=== PATIENT | female | born 1950 | race Caucasian/White ===

== ENCOUNTER 2016-10-02 23:48 | Inpatient (IN) | payer MEDICARE, OTHER ==
--- NOTE | ~2016-10-02 | CO ---
Unit #: [id number] #: [id number] Patient: BENJI ELIZABETH [id number] [facility] [address] [facility]. [place], [place] [address] [id number] I MR#: [id number] NAME: BENJI ELIZABETH ROOM: 320 Age: 66 Sex: F Admission Date: 10/03/2016 : 1950 Attending Physician: Rosa Montalvo M.D. Primary Care Physician: Fiona Nelson Aprn Consultation Date: 10/05/2016 CONSULTATION REPORT REASON FOR ASSESSMENT Followup. DISCUSSION Ms. Brunson is a 66-year-old female, who was admitted after an overdose, history of depression and recent suicide attempt. The patient was stepped down from ICU to unit on 3A. The patient was seen in room 320 bed 1 at [facility]. The patient reports that she is feeling better and wanted to go home. The patient although still having significant depression, but denied any suicidal plan. The patient attempted suicide after she was in hospital for 11 days. REVIEW OF SYSTEMS Complete review of systems is unremarkable. MENTAL STATUS EXAMINATION General appearance; the patient dressed casually. Attention span and concentration, fair. Speech, regular rate. Oriented in time, place, and person. Mood and affect were sad, dysphoric, anxious. Thought process was coherent. Thought content, the patient denied any thoughts of harming self or others, but recent serious suicide attempt, history of depression. Recent and remote memory, fair. Language, able to name object, repeat phrases. Fund of knowledge, fair. Insight and judgment, fair to slightly impaired. DIAGNOSES Psychiatric: Major depressive disorder, recurrent, severe, F33.2. Secondary diagnosis: Deferred. ASSESSMENT/PLAN 1. Supportive psychotherapy and psychoeducation provided to the patient. 2. Educated about benefits and side effects of medication and course and prognosis of illness. 3. Advised the patient to be transferred to inpatient psychiatric facility for psychiatric stabilization and possibly consider ECT treatment as the patient failed with medication. Please feel free to call if any questions, telephone #[phone]. Dictated by... Rl Echols M.D. Unit #: [id number] #: [id number] Patient: BENJI ELIZABETH FAYEC/modl TD: 10/07/2016 07:11 JOB #: [id number] CONSULTATION REPORT X Rl Echols MD CONSULTATION REPORT
--- NOTE | ~2016-10-02 | ST ---
Unit #: [id number] #: [id number] Patient: BENJI ELIZABETH [id number] [facility]. [address] [address] [id number] I MR#: [id number] NAME: BENJI ELIZABETH : 1950 SEX: F STUDY DATE/TIME: 10/04/2016 UNIT: [facility] ROOM: [facility] STUDY DESCRIPTION: Stress Test Attending Physician: Rosa Montalvo M.D. Primary Care Physician: Fiona Nelson Aprn CARDIOLOGY REPORT REASON FOR EXAM Bradycardia and drug overdose. DESCRIPTION Baseline EKG shows sinus rhythm, rate 66 beats per minute. 0.4 mg of Lexiscan was injected per protocol followed by Cardiolite. The patient experienced headache and shortness of breath during the infusion. She denied any complaints of chest pain. Resting blood pressure was 175/99, maximum blood pressure was 175/101, ending blood pressure 174/94. There were no ST or T wave changes suggestive of ischemia during the infusion. There was no ectopy noted during the infusion. The test was stopped secondary to protocol completion. CONCLUSION 1. Negative EKG portion of Lexiscan Cardiolite. 2. No ST or T wave changes suggestive of ischemia. 3. The patient experienced shortness of breath and headache during the infusion. Denied any complaints of chest pain. Her headache and shortness of breath resolved in the recovery period. 4. There were no arrhythmias noted. 5. Please correlate with nuclear imaging. Dictated by... Kasia DuncanRLaurie for Brianne Tamayo/fernie TD: 10/04/2016 12:05 JOB #: [id number] Unit #: [id number] #: [id number] Patient: BENJI ELIZABETH CARDIOLOGY REPORT X Karen Hunter APRN CARDIOLOGY REPORT
--- NOTE | ~2016-10-02 | EKG ---
PATIENT: BENJI ELIZABETH UNIT #: [id number] Ventricular Rate: 63 BPM Atrial Rate: 63 BPM P-R Interval: 136 ms QRS Duration: 94 ms Q-T Interval: 426 ms QTC Calculation(Bezet): 435 ms P [place]: 75 degrees Calculated R [place]: 64 degrees Calculated T Rena [place]: 64 degrees Diagnosis Line: Normal sinus rhythm Diagnosis Line: Normal ECG Diagnosis Line: When compared with ECG of 03-OCT-2016 00:51, Diagnosis Line: Premature atrial complexes are no longer Present Diagnosis Line: Confirmed by DEVANG JASSO MD ([id number]) on Diagnosis Line: 10/04/2016 12:05:23 PM INTERPRETING MD: JUSTIN
--- NOTE | ~2016-10-02 | CO ---
Unit #: [id number] #: [id number] Patient: BENJI ELIZABETH [id number] [facility]. [place] [address] [facility]. [place], [place] [address] [id number] I MR#: [id number] NAME: BENJI ELIZABETH ROOM: 320 Age: 66 Sex: F Admission Date: 10/03/2016 : 1950 Attending Physician: Rosa Montalvo M.D. Primary Care Physician: Fiona Nelson Aprn Consultation Date: 10/03/2016 CONSULTATION REPORT REASON FOR CONSULTATION Medical overdose with Metoprolol. HISTORY OF PRESENT ILLNESS This is a 66-year-old white female with known history of major depressive disorder and polysubstance abuse, previous alcohol abuse and history of drug overdose back in 2012 that caused acute kidney injury, rhabdomyolysis and elevated LFTs. She also has hypertension and COPD. She came to the emergency room by EMS after her realized that she had taken some of her prescription medications. According to information, she took 40 tablets of 25 mg of Metoprolol and 25 tablets of 5 mg of Abilify. The patient had just got the prescription filled on 09/27/2016. The patient does not have any significant cardiac history reported. She says she had a stress test years ago that she was told was normal. The patient, currently on interview and exam, is answering questions appropriately. She said that she wanted to , she was not concerned for her family, they would be okay after they went through the grieving process. She also reports she has been going to a psychiatrist as an outpatient and knew that her depression was worsening. The patient denies any chest pain, pain in her neck, bilateral jaws, shoulders, arms or elbows. She denies any shortness of breath. She denies any dizziness, pre-syncope or syncope. She denies any recent cough, fever or chills. The poison center was called to obtain advice on antidotes or reversals of the drug overdose. She was given a glucagon bolus and placed on a glucagon drip at 3 mg an hour. Prior to that she had activated charcoal 30 grams p.o., and she was given a liter of normal saline. The patient is on suicide watch. She has a sitter. Cardiology has been asked to assist with evaluation and management. PAST MEDICAL HISTORY 1. Hypertension. 2. COPD. 3. History of polysubstance abuse in the past. 4. History of nicotine abuse. 5. History of drug overdose in 2013, which caused acute kidney injury, rhabdomyolysis and elevated LFTs. 6. History of alcohol abuse. 7. Major depressive disorder. PAST SURGICAL HISTORY Unit #: [id number] #: [id number] Patient: BENJI ELIZABETH Removal of a ganglion cyst and also cyst on her left fallopian tube. HOME MEDICATIONS 1. Abilify 5 mg p.o. daily. 2. Metoprolol 25 mg p.o. b.i.d. ALLERGIES codeine. SOCIAL HISTORY The patient lives with her spouse. She has been battling with major depressive disorder for a few years. She smokes 1/2 to a pack of cigarettes a day. Has been smoking most of her adult life. Looking back on previous dictations, she had a history of IV drug use but none in the last couple/three years. She used to drink heavily but reports has not been drinking in some time. FAMILY HISTORY No known coronary artery disease in the immediate family members reported. REVIEW OF SYSTEMS See details in the HPI. PHYSICAL EXAMINATION GENERAL: On exam, the patient is awake, alert, answers most questions appropriately, has a flat affect. VITAL SIGNS: Blood pressure is 94/54; later 103/62, heart rate 56, respirations 16, temperature 97.7, O2 sats 98% on room air. NECK: Trachea midline. No thyromegaly or lymphadenopathy. Normal carotid upstrokes. No jugular venous distention. HEART: S1, S2, regular rate and rhythm. No clicks, murmurs, or rubs. LUNGS: Slightly diminished; otherwise, clear. ABDOMEN: Soft, nontender. Positive bowel sounds present. No hepatosplenomegaly. EXTREMITIES: Pedal pulses are palpable. No pedal edema. DIAGNOSTIC STUDIES LABORATORY DIAGNOSTIC DATA: Glucose is 94, BUN 24, creatinine 1.1, eGFR 53, sodium 139, potassium 3.3, chloride 116, CO2 20, calcium 8.6. Initial cardiac enzymes - CK-MB is 6.1 with troponin less than 0.05. WBC is 13.1, hemoglobin 11.7, hematocrit 35.3, platelets 186. Urine tox screen is negative. Urinalysis shows 2+ leukocyte esterase, positive nitrites, 0-2 urobilinogen, WBCs 10-25, 1+ bacteria. Total protein was 7, albumin 4, bili total 0.4, AST 27, ALT 19, alkaline phosphatase 114. Acetaminophen level less than 10, salicylate level less than 4, alcohol level less than 5. IMAGING: Chest x-ray - Nothing acute. CARDIOVASCULAR: EKG shows sinus bradycardia with frequent premature atrial complexes, ventricular rate 54 beats per minute; otherwise, unremarkable. IMPRESSION 1. Intentional suicide attempt, medical overdose with 40 tablets of 25 mg of Metoprolol and 25 tablets of 5 mg of Abilify. 2. History of hypertension. 3. Hypokalemia. Unit #: [id number] #: [id number] Patient: BENJI ELIZABETH 4. COPD. 5. Nicotine abuse. 6. History of alcohol abuse in the past. 7. History of IV drug abuse in the past back in 2012. PLAN 1. Cardiology consulted to assist with evaluation and management. The patient is currently on a glucagon drip. Her heart rate is in the 50s and 60s. It is not normal sinus rhythm. It has been several hours since her charcoal and initiation of the glucagon. If the blood pressure and heart rate remain stable, we will stop infusion of the glucagon and monitor closely. Continue to monitor the patient in ICU post glucagon drip. 2. The patient's potassium is low. Will supplement with 40 mEq p.o. now. 3. Obtain a two-D echo to evaluate LV function and valves. 4. Obtain TSH and evaluate. 5. Dr. Echols, psychiatrist, has been consulted to assist with management of her suicidal ideations. 6. On exam, there does not appear to be any signs or symptoms of acute CHF, unstable angina. Will need to have an ischemic heart disease workup at some time. 7. Will evaluate what the patient needs for blood pressure management if needed before discharge. 8. Encouraged the patient to completely quit smoking and any polysubstance abuse. 9. Dr. Echols has consult pending. Thank you very much for allowing us to assist in her care. Dictated by... Duy Richard M.D. CEC/jin TD: 10/05/2016 07:35 JOB #: [id number] CONSULTATION REPORT X Marion Christiansen APRN CONSULTATION REPORT
--- NOTE | ~2016-10-02 | DS ---
Unit #: [id number] #: [id number] Patient: BENJI ELIZABETH [id number] [address] [place], [place] [address] [id number] I MR#: [id number] NAME: BENJI ELIZABETH ROOM: 320 Age: 66 Sex: F Admission Date: 10/03/2016 : 1950 Discharge Date: 10/05/2016 Attending Physician: Rosa Montalvo M.D. Primary Care Physician: Fiona Nelson, Shayne DISCHARGE SUMMARY REASON FOR ADMISSION Suicidal overdose. HISTORY OF PRESENT ILLNESS/HOSPITAL COURSE The patient is a 66-year-old female with a past medical history of polysubstance abuse, hypertension, COPD, brought to the emergency department secondary to suicidal overdose. She tried to take 40 pills of metoprolol and 25 pills of Abilify secondary to suicide attempt. She received charcoal by mouth as well as NG-tube was placed. She was quite adamant on the day of admission that she was trying to kill herself. The patient's called EMS. The patient was brought to the hospital for further evaluation. Please see H and P for complete details. Consultation was placed to Dr. Ramachandran of cardiology services secondary to beta manjula ingestion as well as Dr. Villafuerte of pulmonary services for ICU management. The patient underwent Lexiscan Cardiolite stress test to which was negative for acute ischemia. The patient was monitored closely. Heart rate did remain stable at time of discharge. No further beta blockers will be administered. In regards to her overall respiratory status, Dr. Villafuerte and associates followed. Patient otherwise stable and was given breathing treatments including Symbicort, Duo-Neb, aerosols. Initial urinalysis was positive. Final urine culture result did reveal Staphylococcus with sensitivity to Levaquin to which she will be given a prescription at the time of discharge. In regards to her history of suicidal attempt, generalized anxiety disorder, we placed consultation to Dr. Echols who recommended transfer and/or disposition to inpatient psychiatric rehab for ongoing care. Therefore, [facility] this afternoon once bed is available. FINAL DISCHARGE DIAGNOSES 1. Suicidal overdose/attempt. 2. Polypharmacy. 3. Polysubstance abuse in the past. 4. Hypertension. Unit #: [id number] #: [id number] Patient: BENJI ELIZABETH 5. Chronic obstructive pulmonary disease. 6. Staph coag negative urine/urinary tract infection. 7. Generalized anxiety disorder. FINAL DISCHARGE MEDICATIONS 1. Symbicort 160/4.5, two puffs b.i.d. 2. Albuterol, one puff q.6 p.r.n. 3. Levaquin 500 mg p.o. daily x7 days. 4. Norvasc 5 mg p.o. daily. DISCHARGE CONDITION Stable. DISCHARGE DISPOSITION To inpatient psychiatric rehab once bed available. Dictated by... Brianne Zavala/fernie TD: 10/07/2016 08:28 JOB #: [id number] DISCHARGE SUMMARY X Rosa Montalvo MD X DISCHARGE SUMMARY
--- NOTE | ~2016-10-02 | EKG ---
PATIENT: BENJI ELIZABETH UNIT #: [id number] Ventricular Rate: 54 BPM Atrial Rate: 54 BPM P-R Interval: 158 ms QRS Duration: 94 ms Q-T Interval: 484 ms QTC Calculation(Bezet): 458 ms P [place]: 78 degrees Calculated R [place]: 74 degrees Calculated T [place]: 72 degrees Diagnosis Line: Sinus bradycardia with Premature atrial complexes Diagnosis Line: Otherwise normal ECG Diagnosis Line: Diagnosis Line: Confirmed by JOAO ESPARZA MD ([id number]) on 10/03/2016 Diagnosis Line: 7:08:31 AM INTERPRETING MD: ISAIAS MAIER
--- NOTE | ~2016-10-02 | TH ---
Unit #: [id number] #: [id number] Patient: BENJI ELIZABETH [id number] [address] [address] [id number] I MR#: [id number] NAME: BENJI ELIZABETH : 1950 SEX: F STUDY DATE/TIME: 10/04/2016 UNIT: [facility] ROOM: [facility] STUDY DESCRIPTION: LEXISCAN CARDIOLITE STRESS WILMAN Attending Physician: Rosa Montalvo M.D. Primary Care Physician: Fiona Nelson Aprn CARDIOLOGY REPORT EXAM Lexiscan Cardiolite stress test, nuclear portion PROCEDURE Using technetium-99m labeled Cardiolite rest and stress SPECT images were obtained. Multiple SPECT images were obtained in various views including horizontal and vertical long axis, and short axis views of the left ventricle. Images were obtained by gated SPECT method. Patient was administered 10.61 mCi of Cardiolite at rest. The patient was administered 31.2 mCi of Cardiolite after Lexiscan infusion was completed. On the stress images, there is normal perfusion noted. The rest images show normal perfusion. Comparing rest and stress images, there is no stress-induced ischemia noted. The left ventricular ejection fraction is calculated to be 77%. There is focal wall motion abnormality seen. CONCLUSION 1. No stress-induced ischemia noted. 2. Left ventricular ejection fraction is calculated to be 77%. 3. No focal wall motion abnormality seen. 4. Normal Lexiscan Cardiolite stress test. Dictated by... Brianne Tamayo TD: 10/04/2016 15:37 JOB #: [id number] CARDIOLOGY REPORT X Jess Ramachandran MD CARDIOLOGY REPORT
--- NOTE | ~2016-10-02 | CO ---
Unit #: [id number] #: [id number] Patient: NANNETTE ELIZABETH [id number] [facility] [address] [facility]. [place], [place] [address] [id number] I MR#: [id number] NAME: NANNETTE ELIZABETH ROOM: [facility] Age: 66 Sex: F Admission Date: 10/03/2016 : 1950 Attending Physician: Destiny Ernst M.D. Primary Care Physician: Fiona Nelson Aprn Consultation Date: 10/03/2016 CONSULTATION REPORT REASON FOR CONSULTATION Depression, suicide attempt. HISTORY OF PRESENT ILLNESS Ms. Nannette Lim is a 66-year-old white female, seen in ICU-2, bed 5 at [facility]. The patient was admitted last night after taking all her medications. The patient reported that she took overdose as she did not want to live. The patient took 40 pills of metoprolol and 25 pills of Abilify in a suicide attempt. The patient reported that she lives with her in [place]. The patient reported that her was recently released after he was incarcerated for DUI for 18 months in August. The patient reports that she has 2 children; one lives out of state; the other one lives here in town. The patient reported that she has a supportive family. The patient reported that her is very supportive. Denied any history of abuse or any history of substance abuse. The patient reports that she has been suffering from depression all her life. Reported currently focused on at age 20. The patient denied any psychotic symptom; currently feeling sad, depressed, anxious. PAST PSYCHIATRIC HISTORY Remarkable for history of recent admission at [facility] for inpatient. The patient reported that she was there for 11 days and discharged recently and followed up in outpatient clinic. MEDICAL HISTORY The patient has a history of hypertension. MEDICATION HISTORY The patient was on medication for hypertension, Abilify, Klonopin, and Paxil. FAMILY HISTORY AND SOCIAL HISTORY The patient lives with her . Denied any history of abuse or any use of drug or alcohol. REVIEW OF SYSTEMS Complete review of systems is unremarkable. MENTAL STATUS EXAMINATION General appearance, the patient dressed casually, lying comfortably in bed in ICU, has a sitter. Attention span and concentration, fair. Speech, regular rate and coherent. Oriented in time, place, and person. Mood and affect were sad, dysphoric, anxious. Thought process, coherent and goal Unit #: [id number] #: [id number] Patient: NANNETTE ELIZABETH directed. Thought content, the patient denied any thoughts of harming self or others, but somewhat guarded. Denied any auditory or visual hallucination. Recent and remote memory, fair. Language, able to name object and repeat phrases. Fund of knowledge, fair. Insight and judgment, fair to slightly impaired. DIAGNOSES Psychiatric: Major depressive disorder, recurrent, severe, F33.3, without psychotic feature. Secondary Diagnosis: Deferred. Medical Diagnosis: Please refer to H and P. Stressors: Psychosocial stressors. ASSESSMENT/PLAN 1. Supportive psychotherapy and psychoeducation provided to the patient. 2. Educated about benefits and side effects of medication, and course and prognosis of illness. 3. Advised to hold psychotropic medications at this time. Plan to consider at a later date. We will closely monitor the patient's mood and behavior. Plan to consider transferring the patient from here to inpatient psych facility once the patient is medically cleared. Please feel free to call if any question, telephone #[phone]. We will continue with the hold and the sitter at this time for the patient's safety as the patient was still reporting suicidal ideation all day long to the sitter. Dictated by... Brianne Andrea/sara TD: 10/04/2016 04:41 JOB #: [id number] CONSULTATION REPORT X Rl Echols MD X CONSULTATION REPORT
--- NOTE | ~2016-10-02 | CO ---
Unit #: [id number] #: [id number] Patient: BENJI ELIZABETH [id number] [place] [address] [facility]. [place], [place] [address] [id number] I MR#: [id number] NAME: BENJI ELIZABETH ROOM: [facility] Age: 66 Sex: F Admission Date: 10/03/2016 : 1950 Attending Physician: Destiny Ernst M.D. Primary Care Physician: Elle Shea Aprn CONSULTATION REPORT JOB NOTE: CC: ELLE SHEA APRN REASON FOR CONSULTATION ICU monitoring for overdose. HISTORY OF PRESENT ILLNESS This 66-year-old female, who has depression and apparently had an intentional Lopressor and Abilify overdose. She has been in the intensive care unit on glucagon and stable. She does smoke and has a history of COPD. She denies shortness of breath or wheezing. She does have chronic sputum production, but no change in her baseline pulmonary symptoms. She denies chest pain or other acute issues. According to the EHR and the nursing staff, she does admit to trying to kill herself and psychiatry has been consulted. PAST MEDICAL HISTORY Hypertension, COPD, polysubstance abuse. MEDICATIONS At home, Abilify, metoprolol. ALLERGIES Codeine. SOCIAL HISTORY She smokes a pack of cigarettes a day. There was some mention of IV drug abuse and alcohol in the EHR. FAMILY HISTORY No definite familial lung disease. REVIEW OF SYSTEMS She really denies any problems whatsoever. Denies chest pain, palpitations, abdominal pain, melena, hematemesis, trouble swallowing, hematuria, dysuria, leg pain, swelling, headache, dizziness, fever, etc. Further review of systems negative. PHYSICAL EXAMINATION GENERAL: Reveals a patient, who is comfortable lying flat in bed, getting an echocardiogram. VITAL SIGNS: She is afebrile, pulse 58, respiratory rate is 18, blood pressure is 124/65, 5 feet 6 inches, 165 pounds. HEENT: Pupils are equal, round, and reactive to light. Sclerae anicteric. Head atraumatic. Unit #: [id number] #: [id number] Patient: BENJI ELIZABETH NECK: Supple. No supraclavicular or cervical adenopathy appreciated. Mucous membranes moist. She has natural teeth. CHEST: No wheeze, stridor, or consolidation. CARDIAC: Reveals regular rate and rhythm. Mildly bradycardic. No murmur. ABDOMEN: Soft and nontender. No hepatomegaly or rebound. EXTREMITIES: Reveal SCD stockings in place. No definite cyanosis or clubbing. SKIN: Warm and dry without rash or diaphoresis. NEUROLOGIC: Grossly intact. No focal, motor or sensory deficits. DIAGNOSTIC STUDIES LABORATORY RESULTS: BUN 24, creatinine is 1.1, potassium is 3.3, and alkaline phosphatase mildly elevated at 114. White blood cell count 13.1, hemoglobin 11.5, platelet count 186. Tox screen is negative. Urinalysis; 2+ leukocyte esterase, 10 to 25 white blood cells. Urine is pending. IMAGING STUDIES: No radiographs have been performed. IMPRESSION 1. Lopressor and Abilify overdose with subsequent bradycardia, stable. 2. Urinary tract infection. 3. Chronic obstructive pulmonary disease and chronic bronchitis, stable. 4. Active tobacco use. 5. Hypokalemia, treated by Cardiology. PLAN Continue to monitor in ICU, cardiology is managing glucagon/need for dopamine. Psychiatry has been consulted. I will start antibiotics for urinary tract infection. Follow up cultures, adjust as needed. Certainly, no smoking is of great benefit and this has been discussed with the patient. She is on Symbicort and has a nebulizer and Ventolin inhaler at home. I have asked her to continue her Symbicort b.i.d. and as needed albuterol. Thank you very much for allowing me to participate in the care of Ms. Elizabeth. Dictated by... Abelardo Villafuerte M.D. NARGIS/sara TD: 10/04/2016 02:09 JOB #: [id number] CONSULTATION REPORT X Abelardo Villafuerte MD X CONSULTATION REPORT
--- NOTE | ~2016-10-02 | HP ---
Unit #: [id number] #: [id number] Patient: BENJI ELIZABETH [id number] [address] [place], [place] [address] [id number] MR#: [id number] NAME: BENJI ELIZABETH ROOM: [facility] Age: 66 Sex: F Admission Date: 10/03/2016 : 1950 Attending Physician: Alice Hurd M.D. Primary Care Physician: Fiona Nelson Aprn HISTORY AND PHYSICAL CHIEF COMPLAINT Suicidal overdose. HISTORY OF PRESENT ILLNESS The patient is a 66-year-old female with a past medical history of polysubstance abuse, hypertension and COPD, brought to the emergency room for suicidal overdose. The patient took 40 pills of metoprolol and 25 pills of Abilify for suicidal attempt. The patient is minimally responsive and is unable to provide the history. The history is obtained by reviewing the records and speaking to the ER physician and the RN at the bedside. The patient stated the patient was trying to kill herself. The patient has a history of substance abuse in the past and was admitted a few years ago for similar problems. The patient received charcoal by mouth and removed the NG-tube. The patient is unable to provide any history and the patient was found unresponsive and the patient's called EMS for the above reasons. PAST MEDICAL HISTORY 1. History of hypertension. 2. Polysubstance abuse. PAST SURGICAL HISTORY History of ganglion cyst on left fallopian tube. HOME MEDICATIONS Abilify and metoprolol prescribed on 09/27/2016. ALLERGIES Codeine. SOCIAL HISTORY She smokes one third of cigarettes. She also has IV drug abuse as well as the opiates and alcohol. FAMILY HISTORY Unobtainable. REVIEW OF SYSTEMS Unobtainable. PHYSICAL EXAMINATION GENERAL: The patient is lying on the bed, not in acute distress. VITALS: Temperature 97.7, pulse 55, respiratory rate 16, blood pressure 105/75, sat'ing 94% at room air. Unit #: [id number] #: [id number] Patient: BENJI ELIZABETH HEAD: Atraumatic, normocephalic. EENT: Pupils equal, round, reacting to light and accommodation. NECK: Supple. Trachea midline. LUNGS: Decreased air entry at the bases. HEART: Regular rate and rhythm. ABDOMEN: Soft. Positive bowel sounds. EXTREMITIES: She has multiple tract zavaleta for the suicidal attempt/IV track zavaleta. NEUROLOGICAL: The patient minimally responds to verbal commands and opens the eyes and goes back to sleep. She does not follow any commands. SKIN: Warm and dry. DIAGNOSTIC STUDIES LABORATORY DATA: WBC is 9.6, hemoglobin 12.1, hematocrit 36.8, platelets 209. Troponin is less than 0.05. BNP is pending. CARDIOVASCULAR: EKG shows sinus bradycardia with PACs, rate of 54. NE interval of 158 and QTC of 458. ASSESSMENT AND PLAN 1. Altered mental status secondary to (1) /unresponsiveness. 2. Metoprolol and Abilify overdose. 3. Bradycardia. 4. Hypertension. Plan is to admit patient to the ICU. The patient has received a bolus of glucagon and is on the drip. Continue with the glucagon drip. The patient will have a psych evaluation. Sitter one-to-one and suicide precautions. Repeat the labs again in the morning. Critical care done with Dr. Villafuerte who has seen in the past. Nebs q.4 p.r.n. Continue with IV fluids normal saline at 100 mL/hour. Further recommendations to follow as more lab results are available. Dictated by Brianne Bernal TD: 10/03/2016 06:03 JOB #: [id number] HISTORY AND PHYSICAL X X HISTORY AND PHYSICAL
[~2016-10-02 23:48] MED LIST: AL-MAG HYDROX-S30 M1 PO; ALB/IPRATROPIUM/1 E1 INH; AUGMENTIN PO; LISINOPRIL20 MG PO; MULTI-VITAMIN1 EAC1 PO; NORVASC10 MG PO; SODIUM BICARBO650 MG PO; SYMBICORT INH
[2016-10-03 00:34] LABS: POC - CKMB 6.1 ng/mL (0.0-7.9); POC - TROPONIN <0.05 ng/mL (<=0.05)
[2016-10-03 01:08] LABS: BASOPHIL# 0.1 X10e3 (0-0.3); BASOPHIL% 0.9 % (0-2.5); EOSINOPHIL# 0.2 X10e3 (0-0.7); EOSINOPHIL% 1.8 % (0.0-7.0); HEMATOCRIT 36.8 % (35.0-45.0); HEMOGLOBIN 12.1 gm/dL (12.0-16.0); LYMPHOCYTE# 2.6 X10e3 (1.0-3.5); LYMPHOCYTE% 26.8 % (17.0-45.0); MEAN CELL VOLUME 96.5 FL (83-96); MEAN CORPUSCULAR HEMOGLOBIN 31.7 PG (28-34); MEAN CORPUSCULAR HGB CONC 32.9 g/dL (30-36); MEAN PLATELET VOLUME 10.1 FL (6.5-11.5); MONOCYTE% 10.7 % (3.0-12.0); NEUTROPHIL# 5.8 X10e3 (1.5-7.1); NEUTROPHIL% 59.8 % (40-75); PLATELET COUNT 209 X10e3 (140-420); RED BLOOD COUNT 3.81 X10e (3.90-5.30); RED CELL DISTRIBUTION WIDTH 13.1 % (11.0-15.5); WHITE BLOOD COUNT 9.6 X10e3 (4.0-10.5)
[2016-10-03 01:09] LABS: DIFF IND NO
[2016-10-03 01:24] LABS: URINE SOURCE CLEAN CATCH
[2016-10-03 01:38] LABS: ALKALINE PHOSPHATASE 114 U/L (32-92); ALT (SGPT) 19 U/L (10-40); AST (SGOT) 27 U/L (10-42); BILIRUBIN, DIRECT 0.1 mg/dL (0.0-0.2); BILIRUBIN,INDIRECT 0.3 mg/dL (0.0-0.9); BILIRUBIN,TOTAL 0.4 mg/dL (0.2-2.0); BLOOD UREA NITROGEN 23 mg/dL (9-23); CALCIUM SERUM 9.5 mg/dL (8.4-10.2); CARBON DIOXIDE 23 mmol/L (22-31); CHLORIDE 107 mmol/L (100-111); GLOM FILT RATE Estimated 59.1 mL/min (>60); GLUCOSE FASTING 91 mg/dL (70-110); POTASSIUM 3.7 mmol/L (3.5-5.1); SALICYLATE <4.0 mg/dL; SODIUM 138 mmol/L (135-145)
[2016-10-03 01:39] LABS: URINE APPEARANCE CLEAR; URINE BILIRUBIN NEG (NEG); URINE BLOOD NEG (NEG); URINE COLOR YELLOW; URINE GLUCOSE NEG (NEG); URINE KETONE NEG (NEG); URINE LEUKOCYTE ESTERASE 2+ (NEG); URINE NITRATE POS (NEG); URINE PH 5.5 (5-8); URINE PROTEIN NEG (NEG); URINE UROBILINOGEN 0.2 MG/DL (NEG)
[2016-10-03 01:40] LABS: ACETAMINOPHEN <10 ug/mL; ALCOHOL BLOOD <5 mg/dL (0)
[2016-10-03 01:42] LABS: CULTURE INDICATED? YES; URINE BACTERIA AUWI 1+ (NEGATIVE); URINE SQUAMOUS EPITHELIAL CELL OCC /[HPF]
[2016-10-03 01:50] LABS: URINE MUCUS PRESENT
[2016-10-03 01:56] LABS: AMPHETAMINE NEG (NEG); BARBITURATES NEG (NEG); BENZODIAZEPINES NEG (NEG); COCAINE NEG (NEG); MARIJUANA NEG (NEG); OPIATES NEG (NEG); TRICYCLIC ANTIDEPRESSANTS NEG (NEG); U METHADONE NEG (NEG)
[2016-10-03 04:07] LABS: BASOPHIL# 0.1 X10e3 (0-0.3); EOSINOPHIL# 0.2 X10e3 (0-0.7); EOSINOPHIL% 1.2 % (0.0-7.0); HEMATOCRIT 35.3 % (35.0-45.0); HEMOGLOBIN 11.5 gm/dL (12.0-16.0); LYMPHOCYTE# 1.7 X10e3 (1.0-3.5); LYMPHOCYTE% 12.9 % (17.0-45.0); MEAN CELL VOLUME 97.7 FL (83-96); MEAN CORPUSCULAR HEMOGLOBIN 31.9 PG (28-34); MEAN CORPUSCULAR HGB CONC 32.7 g/dL (30-36); MEAN PLATELET VOLUME 9.9 FL (6.5-11.5); MONOCYTE# 1.5 X10e3 (0-1.0); MONOCYTE% 11.2 % (3.0-12.0); NEUTROPHIL# 9.7 X10e3 (1.5-7.1); NEUTROPHIL% 73.7 % (40-75); PLATELET COUNT 186 X10e3 (140-420); RED BLOOD COUNT 3.61 X10e (3.90-5.30); RED CELL DISTRIBUTION WIDTH 12.8 % (11.0-15.5); WHITE BLOOD COUNT 13.1 X10e3 (4.0-10.5)
[2016-10-03 04:17] LABS: DIFF IND NO
[2016-10-03 04:28] LABS: BUN/CREATININE RATIO 21.81; CALCIUM SERUM 8.6 mg/dL (8.4-10.2); CREATININE SERUM 1.1 mg/dL (0.6-1.4); POTASSIUM 3.3 mmol/L (3.5-5.1)
[2016-10-03] MEDS ORDERED: NEURONTIN800 MG PO (05:43)
[2016-10-03] MEDS ORDERED: ABILIFY5 MG PO (05:44)
[2016-10-03] MEDS ORDERED: CITALOPRAM HBR40 MG PO (05:44)
[2016-10-03] MEDS ORDERED: KLONOPIN1 MG PO (05:45)
[2016-10-03] MEDS ORDERED: ALBUTEROL17 GM INH (13:20)
[2016-10-03] MEDS ORDERED: LISINOPRIL30 MG PO (13:20)
[2016-10-03] MEDS ORDERED: SYMBICORT INH (13:21)
[2016-10-03] MEDS ORDERED: METOPROLOL TART25 MG PO (13:22)
[2016-10-03] MEDS ORDERED: HYDROCODONE/APA1 T16 PO (13:27)
[2016-10-04 05:22] LABS: BASOPHIL# 0.1 X10e3 (0-0.3); BASOPHIL% 0.8 % (0-2.5); EOSINOPHIL# 0.1 X10e3 (0-0.7); EOSINOPHIL% 1.8 % (0.0-7.0); HEMATOCRIT 35.2 % (35.0-45.0); HEMOGLOBIN 11.5 gm/dL (12.0-16.0); LYMPHOCYTE# 2.7 X10e3 (1.0-3.5); MEAN CELL VOLUME 98.8 FL (83-96); MEAN CORPUSCULAR HEMOGLOBIN 32.3 PG (28-34); MEAN CORPUSCULAR HGB CONC 32.6 g/dL (30-36); MEAN PLATELET VOLUME 10.3 FL (6.5-11.5); MONOCYTE# 0.7 X10e3 (0-1.0); MONOCYTE% 10.5 % (3.0-12.0); NEUTROPHIL# 2.9 X10e3 (1.5-7.1); NEUTROPHIL% 44.9 % (40-75); PLATELET COUNT 171 X10e3 (140-420); RED BLOOD COUNT 3.56 X10e (3.90-5.30); RED CELL DISTRIBUTION WIDTH 13.2 % (11.0-15.5)
[2016-10-04 05:41] LABS: WHITE BLOOD COUNT 6.4 X10e3 (4.0-10.5)
[2016-10-04 05:42] LABS: DIFF IND NO
[2016-10-04 06:37] LABS: BLOOD UREA NITROGEN 19 mg/dL (9-23); BUN/CREATININE RATIO 21.11; CALCIUM SERUM 9.6 mg/dL (8.4-10.2); CARBON DIOXIDE 19 mmol/L (22-31); CHLORIDE 114 mmol/L (100-111); CREATININE SERUM 0.9 mg/dL (0.6-1.4); GLOM FILT RATE Estimated ABOVE60 mL/min (>60); GLUCOSE FASTING 92 mg/dL (70-110); POTASSIUM 4.8 mmol/L (3.5-5.1); SODIUM 141 mmol/L (135-145)
== END 2016-10-05 19:58 | DRG 918 ==
LOC: CED 23:48 → CEDOF 10-03 01:15 → CICCU2 10-03 05:18 → C3A PCU 10-04 18:50
PROVIDERS: Emergency Medicine; Internal Medicine Cardiovascular Disease
PROC: B24BZZZ Ultrasonography of Heart with Aorta (ICD-10-PCS; principal; 2016-10-03)
DX: T44.7X2A Poisoning by beta-adrenoreceptor antagonists, intentional self-harm, initial encounter (principal); F33.2 Major depressive disorder, recurrent severe without psychotic features; J44.9 Chronic obstructive pulmonary disease, unspecified; N39.0 Urinary tract infection, site not specified; T43.592A Poisoning by other antipsychotics and neuroleptics, intentional self-harm, initial encounter; R00.1 Bradycardia, unspecified; Y92.009 Unspecified place in unspecified non-institutional (private) residence as the place of occurrence of the external cause; F19.10 Other psychoactive substance abuse, uncomplicated; I10 Essential (primary) hypertension; F17.210 Nicotine dependence, cigarettes, uncomplicated; B95.7 Other staphylococcus as the cause of diseases classified elsewhere; F41.1 Generalized anxiety disorder; R41.82 Altered mental status, unspecified; E87.6 Hypokalemia; M54.9 Dorsalgia, unspecified; B19.20 Unspecified viral hepatitis C without hepatic coma; Z88.5 Allergy status to narcotic agent
CPT/HCPCS: 36415; 78452; 80048; 80076; 80307; 81003; 82553; 84484; 85025; 87086; 87088; 87186; 93005; 93017; 93306; 94640; 94664; 94760; 94761; 96360; 99285; A9500; G0480; J0360; J0696; J1610; J1885; J2785